=== PATIENT | female | born 1985 | race Caucasian/White ===

== ENCOUNTER 2018-07-27 19:40 | Inpatient (IN) | payer BC ==
[2018-07-27 19:58] LABS: ADD MAN DIFF? NO
[2018-07-27 20:01] LABS: ABNORMAL IP MESSAGE 1; BASOPHIL # 0.1 10^3/ul (0.0-0.1); BASOPHILS % 0.5 % (0.0-2.0); EOSINOPHILS % 0.2 % (0.0-7.0); HEMATOCRIT 38.6 % (37.0-47.0); HEMOGLOBIN 13.6 g/dl (12.0-16.0); LYMPHOCYTES # 1.5 10^3/ul (0.8-2.9); LYMPHOCYTES % 8.5 % (15.0-51.0); MEAN CORPUSCULAR HEMOGLOBIN 30.4 pg (29.0-33.0); MEAN CORPUSCULAR HGB CONC 35.2 g/dl (32.0-37.0); MEAN CORPUSCULAR VOLUME 86.2 fl (82.0-101.0); MEAN PLATELET VOLUME 12.4 fl (7.4-10.4); MONOCYTE # 1.8 10^3/ul (0.3-0.9); MONOCYTES % 9.9 % (0.0-11.0); NEUTROPHIL # 14.6 10^3/ul (1.6-7.5); NEUTROPHILS % 80.1 % (39.0-77.0); PLATELET COUNT 174 10^3/UL (140-415); RED BLOOD COUNT 4.48 10^6/ul (4.20-5.40); RED CELL DISTRIBUTION WIDTH 11.5 % (11.5-14.5)
[2018-07-27 20:01] LABS: WHITE BLOOD COUNT 18.2 10^3/ul (4.8-10.8)
[2018-07-27 20:04] LABS: POSITIVE DIFF @See below
[2018-07-27] MEDS: SOD CHLORIDE 0.9% 1,000 ML IV (20:12)
[2018-07-27] MEDS: LORAZEPAM 2 MG INJ IV (20:12)
[2018-07-27] MEDS: ONDANSETRON 4 MG INJ IV (20:12)
[2018-07-27] MEDS: HYDROmorphONE 1 MG/ML SYG IV (20:12)
[2018-07-27] MEDS: KETOROLAC 15 MG INJ IV (20:12)
[2018-07-27 20:19] LABS: Estimated GFR > 60 mL/min (>60)
[2018-07-27 20:20] LABS: ANION GAP 15 (5-13); BLOOD UREA NITROGEN 13 mg/dl (7-20); CALCIUM 9.5 mg/dl (8.4-10.2); CARBON DIOXIDE 21 mmol/L (21-31); CREATININE 0.78 mg/dl (0.44-1.00); GLUCOSE 109 mg/dl (70-220); POTASSIUM 3.7 mmol/L (3.5-5.1); SODIUM 137 mmol/L (135-144)
[2018-07-27 20:21] LABS: CHLORIDE 101 mmol/L (97-110)
[2018-07-27 21:28] LABS: ADD UMIC YES; UR ASCORBIC ACID NEGATIVE (NEGATIVE); UR BACTERIA FEW /HPF (NONE SEEN); UR BILIRUBIN (Dip) NEGATIVE (NEGATIVE); UR BLOOD (Dip) 3+ mg/dL (NEGATIVE); UR BUDDING YEAST FEW /HPF (NONE SEEN); UR CLARITY CLEAR (CLEAR); UR COLOR AMBER (YELLOW); UR GLUCOSE (Dip) NEGATIVE (NEGATIVE); UR KETONES (Dip) NEGATIVE (NEGATIVE); UR LEUKOCYTE ESTERASE (Dip) 3+ Leu/ul (NEGATIVE); UR NITRITE (Dip) POSITIVE (NEGATIVE); UR RBC > 182 /HPF (0-5); UR SPECIFIC GRAVITY (Dip) 1.005 (1.003-1.030); UR TOTAL PROTEIN (Dip) NEGATIVE (NEGATIVE); UR UROBILINOGEN (Dip) 1+ mg/dL (NEGATIVE); UR WBC 47 /HPF (0-5)
[2018-07-27] MEDS ORDERED: ONDANSETRON 4 MG INJ IV (22:30)
[2018-07-27] MEDS ORDERED: ACETAMINOPHEN 325 MG TAB PO (22:30)
[2018-07-27] MEDS: CEFTRIAXONE 1 GM/50 ML (PMX) 50 ML IVPB (22:45)
[2018-07-28] MEDS ORDERED: ONDANSETRON 4 MG INJ IV (01:30)
[2018-07-28] MEDS: DEXTROSE 5%-0.45% NACL 1,000 ML IV ×5 (02:09→20:00)
[2018-07-28] MEDS: HYDROmorphONE 0.5 MG/0.5 ML SYG IV ×6 (02:10→20:17)
[2018-07-28] MEDS: CEFTRIAXONE 1 GM/50 ML (PMX) 50 ML IVPB (09:01)
[2018-07-28] MEDS: MAGNESIUM HYDROXIDE 30ML CUP PO (16:50)
[2018-07-28] MEDS: TAMSULOSIN (SR) 0.4 MG CAP PO (20:17)
[2018-07-29] MEDS: HYDROmorphONE 0.5 MG/0.5 ML SYG IV ×2 (00:13→10:12)
[2018-07-29] MEDS: DEXTROSE 5%-0.45% NACL 1,000 ML IV ×3 (01:22→09:30)
[2018-07-29] MEDS: ACETAMINOPHEN 325 MG TAB PO ×2 (05:39→09:14)
[2018-07-29 05:51] LABS: ADD MAN DIFF? NO
[2018-07-29 06:00] LABS: WHITE BLOOD COUNT 7.8 10^3/ul (4.8-10.8)
[2018-07-29 06:00] LABS: BASOPHIL # 0.1 10^3/ul (0.0-0.1); BASOPHILS % 0.8 % (0.0-2.0); EOSINOPHILS # 0.3 10^3/ul (0.0-0.5); EOSINOPHILS % 4.3 % (0.0-7.0); HEMATOCRIT 33.3 % (37.0-47.0); HEMOGLOBIN 11.3 g/dl (12.0-16.0); LYMPHOCYTES # 2.1 10^3/ul (0.8-2.9); LYMPHOCYTES % 26.9 % (15.0-51.0); MEAN CORPUSCULAR HGB CONC 33.9 g/dl (32.0-37.0); MEAN CORPUSCULAR VOLUME 88.3 fl (82.0-101.0); MEAN PLATELET VOLUME 11.9 fl (7.4-10.4); MONOCYTE # 1.1 10^3/ul (0.3-0.9); MONOCYTES % 14.5 % (0.0-11.0); NEUTROPHIL # 4.2 10^3/ul (1.6-7.5); PLATELET COUNT 157 10^3/UL (140-415); RED BLOOD COUNT 3.77 10^6/ul (4.20-5.40); RED CELL DISTRIBUTION WIDTH 11.6 % (11.5-14.5)
[2018-07-29] MEDS: CEFTRIAXONE 1 GM/50 ML (PMX) 50 ML IVPB (10:12)
== END 2018-07-29 13:15 | disposition home or self-care (01) | DRG 699 ==
LOC: 2NE 22:29 → E/R 19:40
DX: T83.84XA Pain due to genitourinary prosthetic devices, implants and grafts, initial encounter (principal); N39.0 Urinary tract infection, site not specified; Q61.5 Medullary cystic kidney; N20.0 Calculus of kidney; G89.18 Other acute postprocedural pain; Y84.8 Other medical procedures as the cause of abnormal reaction of the patient, or of later complication, without mention of misadventure at the time of the procedure; Y92.019 Unspecified place in single-family (private) house as the place of occurrence of the external cause; Z96.0 Presence of urogenital implants; Z87.442 Personal history of urinary calculi
CPT/HCPCS: 36415; 74018; 76775; 80048; 81001; 81025; 85025; 87086; 96374; 96375; 99285-25